=== PATIENT | male | born 1970 | race Caucasian/White ===

== ENCOUNTER 2019-02-11 11:25 | Emergency (ER) | payer OTHER ==
[~2019-02-11] VITALS: Ht 175.3 cm; Wt 86.2 kg
[~2019-02-11 11:25] MED LIST: ALLO100T PO; FOLI1TAB16 PO; HYDR-3165 PO; MYCO500T PO; OMEP20TA63 PO; SODI650T PO; TACR1CAP4 PO
[2019-02-11 11:37] VITALS: BP 128/73
--- NOTE | 2019-02-11 12:12 | PHYS DOC ---
Past History Past Medical History: No Pertinent History Past Surgical History: Cancer Surgery, Other Alcohol Use: None Drug Use: None Adult General Chief Complaint Chief Complaint: PUNCTURE WOUND HPI HPI 48-year-old male presents with possible puncture wound. 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 He took away a wire tie from the patient put in his pocket. While he was walking he felt the metal end of it poking through his pants and into his thigh. The patient did not have any bleeding. He is unsure if it completely broken skin or not. He was advised to come in for evaluation. His tetanus shot is 9 years or longer. Patient denies any pain or any other complaints. Review of Systems Review of Systems Constitutional: Denies fever or chills [] Eyes: Denies change in visual acuity, redness, or eye pain [] HENT: Denies nasal congestion or sore throat [] Respiratory: Denies cough or shortness of breath [] Cardiovascular: No additional information not addressed in HPI [] GI: Denies abdominal pain, nausea, vomiting, bloody stools or diarrhea [] : Denies dysuria or hematuria [] Musculoskeletal: Denies back pain or joint pain [] Integument: puncture wound[] Neurologic: Denies headache, focal weakness or sensory changes [] Endocrine: Denies polyuria or polydipsia [] All other systems were reviewed and found to be within normal limits, except as documented in this note. Current Medications Current Medications Current Medications Medications (Trade) Dose Ordered Sig/Kumar Start Time Stop Time Status Last Admin Dose Admin Diphtheria/ Tetanus/Acell Pertussis (Boostrix) 0.5 ml ONCE ONCE 02/11/19 12:15 02/11/19 12:16 Allergies Allergies Allergies Coded Allergies Type Severity Reaction Last Updated Verified morphine Allergy Severe Swelling 09/24/16 Yes Physical Exam Physical Exam Constitutional: Well developed, well nourished, no acute distress, non-toxic appearance. [] HENT: Normocephalic, atraumatic, bilateral external ears normal, oropharynx moist, no oral exudates, nose normal. [] Eyes: PERRLA, EOMI, conjunctiva normal, no discharge. [] Neck: Normal range of motion, no tenderness, supple, no stridor. [] Cardiovascular:Heart rate regular rhythm, no murmur [] Lungs & Thorax: Bilateral breath sounds clear to auscultation [] Abdomen: Bowel sounds normal, soft, no tenderness, no masses, no pulsatile masses. [] Skin: Warm, dry, no erythema, no rash. I was unable to find a puncture wound location.[] Back: No tenderness, no CVA tenderness. [] Extremities: No tenderness, no cyanosis, no clubbing, ROM intact, no edema. [] Neurologic: Alert and oriented X 3, normal motor function, normal sensory function, no focal deficits noted. [] Psychologic: Affect normal, judgement normal, mood normal. [] Current Patient Data Vital Signs Vital Signs Date Time Temp Pulse Resp B/P (MAP) Pulse Ox O2 Delivery O2 Flow Rate FiO2 02/11/19 11:37 99.5 71 16 97 Room Air EKG EKG [] Radiology/Procedures Radiology/Procedures [] Course & Med Decision Making Course & Med Decision Making Pertinent Labs and Imaging studies reviewed. (See chart for details) I believe is likely that the patient only had a partial superficial puncture. I did go ahead and order his is an HIV panel which is in accordance with the protocol for his facility. We did give him his Tdap. He is stable for discharge at this time. [] Dragon Disclaimer Dragon Disclaimer This electronic medical record was generated, in whole or in part, using a voice recognition dictation system. Departure Departure: Impression: Primary Impression: Puncture wound Disposition: 01 HOME, SELF-CARE Condition: STABLE Referrals: DRISS BRANNON PA-C (PCP) Patient Instructions: Puncture Wound, [id number] KERA VAZQUEZ DO Feb 11, 2019 12:12
[2019-02-11] MEDS ORDERED: DIPHTH,PERTUSS(ACELL),TET TOX 0.5 ML DISP.SYRIN. VAX IM ONE (12:15)
== END 2019-02-11 12:16 | disposition home or self-care (01) ==
LOC: ER 11:25
DX: S71.132A Puncture wound without foreign body, left thigh, initial encounter (principal); Z88.5 Allergy status to narcotic agent; W22.8XXA Striking against or struck by other objects, initial encounter; Y93.01 Activity, walking, marching and hiking; Y92.149 Unspecified place in prison as the place of occurrence of the external cause; Y99.0 Civilian activity done for income or pay
CPT/HCPCS: 86703; 86705; 86709; 86803; 87340; 90471; 90715; 99283

== ENCOUNTER 2020-01-20 13:02 | Emergency (ER) | payer OTHER ==
[~2020-01-20] VITALS: Ht 175.3 cm; Wt 102.5 kg
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
[2020-01-20 14:05] VITALS: BP 118/72
== END 2020-01-20 14:10 | disposition home or self-care (01) ==
LOC: ER 13:02
DX: Z77.21 Contact with and (suspected) exposure to potentially hazardous body fluids (principal); Z94.0 Kidney transplant status; Z88.5 Allergy status to narcotic agent
CPT/HCPCS: 86703; 86705; 86709; 86803; 87340; 99283